=== PATIENT | female | born 1975 | race Caucasian/White ===

== ENCOUNTER 2023-07-04 20:37 | Emergency (ER) | payer OTHER, SELFPAY ==
[2023-07-04 20:46] VITALS: BP 123/90; PULSE 84; RESP 18; TEMP 36.8; O2SAT 98; BMI 24.9
--- NOTE | 2023-07-04 20:52 | CT_ITS ---
[address] [address] Patient Name: AVINASH ESCALANTE MRN: [id number] date: 1975 Sex: F Assigned Patient Location: ER Current Patient Location: Accession/Order Number: [id number] Exam Date: 07/04/2023 21:20 Report Date: 07/04/2023 21:47 At the request of: ROSALINDA DOOLEY Procedure: CT facial bones wo con EXAM: CT facial bones wo con, CT head/brain wo con REASON FOR EXAM: Female, 47 years, trauma. TECHNIQUE: Computed tomography of the head and facial bones is performed in the axial projection. Sagittal and coronal reconstructed images are performed. Dose reduction techniques were achieved by using automated exposure control and/or adjustment of mA and/or KVP according to patient size and/or use of iterative reconstruction technique. COMPARISON: None. FINDINGS: There is soft tissue swelling in the right frontal scalp. Normal calvarium. The ventricles have normal size and configuration for patient's age. Normal brain parenchyma. Normal basal ganglia. Normal brainstem. The cerebellum is normal. There is no evidence for acute ischemia. There is no evidence for acute hemorrhage. There is minimal mucosal thickening within the right maxillary sinus. There is no nasal bone fracture. There is a small amount of soft tissue gas overlying the nose consistent with history of laceration. Normal maxillary spine. Normal mandible with normal alignment at the temporomandibular joints. Normal zygomas and pterygoid plates. The orbital brown are preserved. The globes are symmetric. CT/CT facial bones wo con IMPRESSION: Soft tissue swelling in the right frontal scalp. There is a small amount of air overlying the nose consistent with laceration. No acute facial bone fracture. No acute intracranial abnormality. Electronically authenticated by: LONG MURILLO Date: 07/04/2023 21:47
--- NOTE | 2023-07-04 20:52 | CT_ITS ---
The [address] [address] Patient Name: AVINASH ESCALANTE MRN: [id number] date: 1975 Sex: F Assigned Patient Location: ER Current Patient Location: ER Accession/Order Number: [id number] Exam Date: 07/04/2023 21:20 Report Date: 07/04/2023 21:50 At the request of: ROSALINDA DOOLEY Procedure: CT cervical spine wo con EXAM: CT cervical spine wo con HISTORY: fall COMPARISON: None. TECHNIQUE: Computed tomography of the cervical spine is performed in the axial projection. Sagittal and coronal reconstructed images are performed. Dose reduction techniques were achieved by using automated exposure control and/or adjustment of mA and/or KVP according to patient size and/or use of iterative reconstruction technique. FINDINGS: There is preservation of the normal cervical lordosis. There are mild degenerative changes within the cervical spine, with neural foraminal narrowing noted at C6-C7 on the right, and on the left. No fracture or subluxation. Normal precervical soft tissues. The visualized lung apices are clear. CT/CT cervical spine wo con IMPRESSION: No acute bony abnormality. Degenerative changes, as described above. Electronically authenticated by: LONG MURILLO Date: 07/04/2023 21:50
--- NOTE | 2023-07-04 20:52 | CT_ITS ---
[address] [address] Patient Name: AVINASH ESCALANTE MRN: [id number] date: 1975 Sex: F Assigned Patient Location: ER Current Patient Location: Accession/Order Number: [id number] Exam Date: 07/04/2023 21:20 Report Date: 07/04/2023 21:47 At the request of: ROSALINDA DOOLEY Procedure: CT head/brain wo con EXAM: CT facial bones wo con, CT head/brain wo con REASON FOR EXAM: Female, 47 years, trauma. TECHNIQUE: Computed tomography of the head and facial bones is performed in the axial projection. Sagittal and coronal reconstructed images are performed. Dose reduction techniques were achieved by using automated exposure control and/or adjustment of mA and/or KVP according to patient size and/or use of iterative reconstruction technique. COMPARISON: None. FINDINGS: There is soft tissue swelling in the right frontal scalp. Normal calvarium. The ventricles have normal size and configuration for patient's age. Normal brain parenchyma. Normal basal ganglia. Normal brainstem. The cerebellum is normal. There is no evidence for acute ischemia. There is no evidence for acute hemorrhage. There is minimal mucosal thickening within the right maxillary sinus. There is no nasal bone fracture. There is a small amount of soft tissue gas overlying the nose consistent with history of laceration. Normal maxillary spine. Normal mandible with normal alignment at the temporomandibular joints. Normal zygomas and pterygoid plates. The orbital brown are preserved. The globes are symmetric. CT/CT head/brain wo con IMPRESSION: Soft tissue swelling in the right frontal scalp. There is a small amount of air overlying the nose consistent with laceration. No acute facial bone fracture. No acute intracranial abnormality. Electronically authenticated by: LONG MURILLO Date: 07/04/2023 21:47
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
[2023-07-04] MEDS: 0.9 % SODIUM CHLORIDE 1,000 ML 999 ML IV (21:04)
[2023-07-04 21:08] LABS: Basophils Absolute Auto 0.1 10^3/uL (0.0-0.1); Basophils Percent Auto 0.9 % (0.2-2.0); Eosinophils Absolute Auto 0.3 10^3/uL (0.0-0.7); Eosinophils Percent Auto 2.5 % (0.9-7.0); Hematocrit 48.9 % (36.0-48.0); Hemoglobin 15.9 g/dL (12.0-16.0); Immature Granulocytes Abs Auto 0.02 10^3/uL (0.00-0.03); Immature Granulocytes Pct Auto 0.2 % (0.0-0.5); Lymphocytes Percent Auto 38.5 % (20.5-60.0); Mean Corpuscular HGB Conc 32.5 g/dL (29.9-35.2); Mean Corpuscular Hemoglobin 30.1 pg (26.7-34.0); Mean Corpuscular Volume 92.4 fL (81.0-99.0); Monocytes Absolute Auto 0.6 10^3/uL (0.3-0.8); Monocytes Percent Auto 5.6 % (1.7-12.0); Neutrophils Absolute Auto 5.5 10^3/uL (1.4-6.5); Neutrophils Percent Auto 52.3 % (43.0-75.0); Platelet Count 276 10^3/uL (150-450); Red Blood Count 5.29 10^6/uL (4.20-5.40); Red Cell Distribution Width 11.7 % (11.0-15.0); White Blood Count 10.5 10^3/uL (4.0-11.0)
[2023-07-04 21:23] LABS: Alanine Aminotransferase 26 U/L (14-59); Albumin Globulin Ratio 0.8; Albumin Level 3.8 g/dL (3.4-5.0); Alkaline Phosphatase 58 U/L (46-116); Anion Gap 16.3; Aspartate Amino Transferase 23 U/L (15-37); BUN Creatinine Ratio 14.7; Bilirubin Total 0.3 mg/dL (0.2-1.0); Calcium 8.8 mg/dL (8.5-10.1); Carbon Dioxide 22.6 mmol/L (21.0-32.0); Chloride 103 mmol/L (98-107); Estimated GFR (African America >60 (>=60); Estimated GFR (Non-African Ame >60 (>=60); Ethanol 273 mg/dL; Globulin 4.5 g/dL; Glucose 100 mg/dL (74-106); Potassium 3.9 mmol/L (3.5-5.1); Sodium 138 mmol/L (136-145); Total Protein 8.3 g/dL (6.4-8.2)
[2023-07-04 21:28] LABS: Lactate/Lactic Acid 2.1 mmol/L (0.4-2.0)
[2023-07-04 22:06] VITALS: BP 112/68
[2023-07-04 22:07] VITALS: O2SAT 97
[2023-07-04 22:10] VITALS: O2SAT 97
[2023-07-04 22:12] LABS: Amphetamine Screen Urine NEGATIVE (NEGATIVE); Barbiturates Screen Urine NEGATIVE (NEGATIVE); Benzodiazepines Screen Urine NEGATIVE (NEGATIVE); Buprenorphine Screen Urine NEGATIVE (NEGATIVE); Cannabinoid Screen Urine NEGATIVE (NEGATIVE); Cocaine Screen Urine NEGATIVE (NEGATIVE); Methadone Screen Urine NEGATIVE (NEGATIVE); Methamphetamines Screen Urine NEGATIVE (NEGATIVE); Opiate Screen Urine NEGATIVE (NEGATIVE); Oxycodone Screen Urine NEGATIVE (NEGATIVE); Phencyclidine Screen Urine NEGATIVE (NEGATIVE); Tricyclic Antidepressant Urine NEGATIVE (NEGATIVE)
[2023-07-04] MEDS: LIDOCAINE HCL 1% 100 MG/10 ML MDV INJ (22:38)
[2023-07-04] MEDS: ADACEL DIPH,PERTUSS(ACELL),TET VAC/PF 0.5 ML ADULT SYRINGE IM (23:29)
[2023-07-04] MEDS: CLINDAMYCIN HCL 150 MG CAPSULE PO (23:29)
[2023-07-04] MEDS: BACITRACIN OINTMENT 28.4 GM TUBE 1 APPLIC TOPICAL (23:43)
--- NOTE | 2023-07-04 23:44 | PC.NURSE ---
Pts face cleansed and bandaged, bacitracin applied. Tdap vaccine given. Script and work note provided. Pt verbalized understanding to follow up with plastics tmrw morning. Pt wheeled off unit in stable condition out to moms car. All questions answered. Pt ambulated with a steady gait to car.
== END 2023-07-04 23:48 | disposition home or self-care (01) ==
PROVIDERS: Emergency Provider Internal Medicine; Family Provider Family Medicine; PCP Family Medicine
DX: F10.129 Alcohol abuse with intoxication, unspecified (principal); S06.0X0A Concussion without loss of consciousness, initial encounter; S01.21XA Laceration without foreign body of nose, initial encounter; W19.XXXA Unspecified fall, initial encounter; Z23 Encounter for immunization; Z79.899 Other long term (current) drug therapy
CPT/HCPCS: 12013; 36415; 70450; 70486; 72125; 80053; 80307; 80320; 83605; 85025; 90471; 90715; 99284